=== PATIENT | male | born 1960 | race Two or more races ===

== ENCOUNTER 2024-07-03 10:58 | Outpatient (AMB) | payer MEDICAID, SELFPAY ==
[2024-07-03 11:44] VITALS: BP 152/90; PULSE 95; RESP 18; TEMP 37.2; O2SAT 93; BMI 41.7
--- NOTE | 2024-07-03 11:44 | ORTHONT_ITS ---
Vital signs 07/03/24 11:44 Height 1.6 m Height Method Stated Weight 106.793 kg Weight Measurement Method Standing Scale BMI 41.7 BP 152/90 H Blood Pressure Source Automatic Cuff Blood Pressure Location Left Upper Arm Position Sitting Respiration 18 Pulse 95 Pulse Source Monitor Temp 98.9 F Temp Source Temporal Artery Scan Pulse Oximetry (%) 93 L Oxygen Delivery Method Room Air Med/Allergies Allergies & Medications Allergies No Known Allergies Allergy (Verified 07/03/24 11:45) Medication Reconciliation acetaminophen 500 mg tablet 500 mg PO Q6H PRN Pain 12/22/23 [History Confirmed 0 07/03/24] lisinopril 20 mg tablet (Zestril) 20 mg PO QDAY 12/22/23 [History Confirmed 07/03/24] sitagliptin phosphate 50 mg-metformin 1,000 mg tablet (Janumet) 1 tab BID 12/22/23 [History Confirmed 07/03/24] blood sugar diagnostic (Blood Glucose Test strips) #50 ea 12/26/23 [Rx Confirmed 07/03/24] blood-glucose meter (Blood Glucose Monitoring kit) #1 ea 12/26/23 [Rx Confirmed 07/03/24] lancets 33 gauge (E-Z Ject Lancets) #100 ea 12/26/23 [Rx Confirmed 07/03/24] sitagliptin phosphate 50 mg-metformin 1,000 mg tablet (Janumet) 1 tab PO BID 07/03/24 [History Confirmed 07/03/24] Exam Exam Breathing is nonlabored. Patient has a normal mood and affect. Bilateral extremities were evaluated and demonstrates sensation intact to light touch. Palpable pedal pulses are present. No significant edema is present. Bilateral hips were examined. The patient has no pain with log roll of the hips. Internal rotation to 30 degrees and external rotation to 30 degrees is painless. Negative FADIR. Left knee was examined today. The left knee is in reasonable alignment. Range of motion from 0-120 degrees. Knee is stable to varus and valgus as well as AP translation with <5mm. Patient has a negative McMurrays. There is no pain with patellofemoral compression and no crepitus noted. The knee is nontender to palpation. The right knee was also examined. The right knee is in varus alignment. Range of motion from 0-115 degrees. Knee is stable to varus and valgus as well as AP translation with <5mm. Patient has a negative McMurrays. There is no pain with patellofemoral compression and no crepitus noted. The knee is tender to palpation medially. Assessment and Plan Problem List (1) Degenerative arthritis of knee, bilateral: Status: Acute Plan: Patient is a pleasant 64-year-old Male with bilateral knee pain and bilateral knee arthritis. We discussed nonoperative and operative options. He would need to be optimized medically and I will to see what his hemoglobin A1c is. We dis cussed different treatment options being on what that shows and what x-rays show. Office Procedures GNS Level of Care Nursing/Assessment Patient Status: Initial/New Patient Nursing Assessment/Reassesment: Medication Reconciliation, Update PMH in EMR and Vital Signs Coordination of Care: Complex Care and Chronic Disease 1-5, Education Complex Pt/Fam, Consent,records obtained, informed consent, 1 Ins Authorization, Lab and Imaging orders, Results/Orders obtained and Staff clarify orders Special Needs: Language special needs New Patient Charge New Patient Point Assignment: 1124 New Patient Point Charge: GENERATION ENGINEERING TECHNOLOGIST Level 4 ([id number]) MA Intake Visit Data Collection New Patient or Established: New Patient (never been to [facility]) Reason for Visit:: OSTEOARTHRITIS LEFT KNEE Seen by Clinical Staff ONLY (RN/MA): No Clerical Aide Required: Yes PCP or OBGYN visit in last 3 months: Yes Hx Now: No Do You Feel Safe at Home: Yes Authorities Contacted: N/A Questionairres Past Medical History Past Medical History Have you ever been diagnosed with any of the following: Cardiology Problems Congestive Heart Failure: No Hypertension: Yes Respiratory Problems Chronic Obstructive Pulmonary Disease (COPD): No Smoking: No Smoking Cessation Counseling: No Smoking Exposure: No Genital/Urinary Problems Renal Disease: No Musculoskeletal Problems Arthritis: Yes Endocrine Problems Diabetes Mellitus Type 1: No Diabetes Mellitus Type 2: Yes Subjective Visit Visit for: new patient and knee (LEFT) Immunization / Flu Flu Vaccine in the Last 12 Months: No Flu Vaccine Exclusion Criteria: Already Received History of Present Illness Chief complaint: left knee pain Patient is a 64-year-old male with bilateral knee pain worse on the left. He has had injections before with the last one in September and it did help. He has uncontrolled diabetes and we are unsure what his A1c is. The left knee is affecting his quality life and he is using a cane Pain Pain level (0-10): 6 Pain duration: WITH MOVEMENT Pain location: inside (medial) and anterior Pain quality: dull and aching Pain timing: increases with activity and stairs Associated signs & symptoms: none Ambulatory data Ambulatory device: none Treatments Improvement with previous injections: No Improvement with PT: No Improvement with NSAIDS: no Review of Systems Review of Systems: All systems negative unless otherwise noted in HPI.
--- NOTE | 2024-07-03 11:50 | XR_ITS ---
Examination: Bilateral knees 2 views Right lateral knee left lateral knee 2 views Right axial knee left axial knee 2 views total 6 views Exam date and time: 2024 at 12 0 1:00 PM INDICATIONS: Bilateral knee pain beginning 2 years ago. FINDINGS: Severe osteopenia Severe bilateral narrowing medial lateral joint spaces Bilateral advanced narrowing and osteoarthritis patellofemoral joints No fractures IMPRESSION: Severe bilateral tricompartment osteoarthritis
== END 2024-07-03 13:02 | disposition home or self-care (01) ==
PROVIDERS: PCP Family Medicine; Referring Provider Family Medicine; Supervising Provider Orthopaedic Surgery Adult Reconstructive Orthopaedic Surgery; Visit Provider Orthopaedic Surgery Adult Reconstructive Orthopaedic Surgery
DX: M17.0 Bilateral primary osteoarthritis of knee (principal)
CPT/HCPCS: 73564; 99204; G0463

== ENCOUNTER 2024-07-20 14:58 | Outpatient (AMB) | payer MEDICAID, SELFPAY ==
[2024-07-20 15:31] VITALS: BP 144/79; PULSE 88; RESP 18; TEMP 36.9; O2SAT 95; BMI 42.7
--- NOTE | 2024-07-20 15:31 | ORTHONT_ITS ---
Vital signs 07/20/24 15:31 Height 1.6 m Height Method Stated Weight 109.514 kg Weight Measurement Method Standing Scale BMI 42.7 BP 144/79 H Blood Pressure Source Automatic Cuff Blood Pressure Location Right Upper Arm Position Sitting Respiration 18 Pulse 88 Pulse Source Monitor Temp 98.5 F Temp Source Temporal Artery Scan Pulse Oximetry (%) 95 Oxygen Delivery Method Room Air Med/Allergies Allergies & Medications Allergies No Known Allergies Allergy (Verified 07/20/24 15:34) Medication Reconciliation acetaminophen 500 mg tablet 500 mg PO Q6H PRN Pain 12/22/23 [History Confirmed 07/20/24] lisinopril 20 mg tablet (Zestril) 20 mg PO QDAY 12/22/23 [History Confirmed 07/20/24] sitagliptin phosphate 50 mg-metformin 1,000 mg tablet (Janumet) 1 tab BID 12/22/23 [History Confirmed 07/20/24] blood sugar diagnostic (Blood Glucose Test strips) #50 ea 12/26/23 [Rx Confirmed 07/20/24] blood-glucose meter (Blood Glucose Monitoring kit) #1 ea 12/26/23 [Rx Confirmed 07/20/24] lancets 33 gauge (E-Z Ject Lancets) #100 ea 12/26/23 [Rx Confirmed 07/20/24] sitagliptin phosphate 50 mg-metformin 1,000 mg tablet (Janumet) 1 tab PO BID 07/03/24 [History Confirmed 07/20/24] Exam Exam Breathing is nonlabored. Patient has a normal mood and affect. Bilateral extremities were evaluated and demonstrates sensation intact to light touch. Palpable pedal pulses are present. No significant edema is present. Bilateral hips were examined. The patient has no pain with log roll of the hips. Internal rotation to 30 degrees and external rotation to 30 degrees is painless. Negative FADIR. Left knee was examined today. The left knee is in reasonable alignment. Range of motion from 0-120 degrees. Knee is stable to varus and valgus as well as AP translation with <5mm. Patient has a negative McMurrays. There is no pain with patellofemoral compression and no crepitus noted. The knee is nontender to palpation. The right knee was also examined. The right knee is in varus alignment. Range of motion from 0-115 degrees. Knee is stable to varus and valgus as well as AP translation with <5mm. Patient has a negative McMurrays. There is no pain with patellofemoral compression and no crepitus noted. The knee is tender to palpation medially. Bilateral knees demonstrate significant obliteration of the medial and lateral joint space bilaterally. Assessment and Plan Problem List (1) Degenerative arthritis of knee, bilateral: Status: Acute Plan: Patient is a 64-year-old male who is tried over 5 injections in the left knee. He has left greater than right knee pain and the pain is affecting his quality life and happiness. His hemoglobin A1c is currently 7.4. He reports he is as optimized as he can be. We thus will proceed with a left total knee replacement. The nature and purpose of the total knee replacement, alternative method(s) of treatment, the material risks involved, and the possibility of complications were fully explained to the patient. The patient does NOT have any of the following contraindications to TKA: - Active infection of the knee joint, OR - Active systemic bacteremia, OR - Active skin infection or open wound at surgical site, OR - Neuropathic arthritis, OR - Severe, rapidly progressive neurological disease, OR - Severe medical condition that makes risks of surgery outweigh the potential benefit The patient was told the most common risks and complications associated with a total knee replacement include, but are not limited to: blood clots in the leg, fatal pulmonary embolism, dislocation of the prosthesis, intraoperative and postoperative fractures of the femur or tibia, infection, failure of the prosthesis or grafting materials, complications from anesthesia, reactions to blood transfusions, postoperative leg length inequality, instability of the knee replacement, nerve damage or injury, vascular injury, delayed wound healing, infection, other injury or even . In addition, there are risks associated with anesthesia given during this operation. Also, the patient was told that after undergoing a total knee replacement there may still be persistent pain or disability. The patient was informed that the success of this operation in part depends upon the mechanical devices which are going to be implanted and that these devices can fail or malfunction, and may need to be repaired or replaced and there are no guarantees as to the longevity of this device or its parts and that it or its parts could fail prematurely. The patient was also notified that during the course of surgery, there may be a need to use bone graft from donors, and that any bone graft used will be carefully screened for communicable diseases, including AIDS, hepatitis, Roberto-Creutzfeldt, or other diseases, but despite the screening procedures, there is a small chance that they could contract one of these diseases. Finally, the patient was asked to follow completely and fully with all advice and recommended treatments, and that recovery and ultimate outcome are affected by their compliance with recommended treatment. We discussed the risks, benefits and treatment alternatives, and the patient is interested in proceeding with surgery. We will try to set this up as expeditiously as possible. CT previous Office Procedures GNS Level of Care Nursing/Assessment Patient Status: Established Patient Nursing Assessment/Reassesment: Medication Reconciliation, Update PMH in EMR and Vital Signs Coordination of Care: Complex Care and Chronic Disease 1-5, Education Complex Pt/Fam, Consent,records obtained, informed consent, Results/Orders obtained and Staff clarify orders Special Needs: Language special needs Established Patient Charge Established Patient Point Assignment: 95 Established Patient Point Charge: EP Level 3 (80-115) MA Intake Visit Data Collection New Patient or Established: Established Patient (seen at [facility] within 3 years) Reason for Visit:: F/U XRAYS Seen by Clinical Staff ONLY (RN/MA): No Verbal consent obtained for Telemed visit?: No Separations Scientist Required: Yes PCP or OBGYN visit in last 3 months: Yes Hx Now: No Do You Feel Safe at Home: Yes Authorities Contacted: N/A Questionairres Past Medical History Past Medical History Have you ever been diagnosed with any of the following: Cardiology Problems Congestive Heart Failure: No Hypertension: Yes Respiratory Problems Chronic Obstructive Pulmonary Disease (COPD): No Smoking: No Smoking Cessation Counseling: No Smoking Exposure: No Genital/Urinary Problems Renal Disease: No Musculoskeletal Problems Arthritis: Yes Endocrine Problems Diabetes Mellitus Type 1: No Diabetes Mellitus Type 2: Yes Subjective Visit Visit for: new patient and knee (LEFT) Immunization / Flu Flu Vaccine in the Last 12 Months: No Flu Vaccine Exclusion Criteria: Already Received History of Present Illness Chief complaint: left knee pain Patient is a 64-year-old male with bilateral knee pain worse on the left. He has had injections before with the last one in September and it did help. His hemoglobin A1c is 7.4 and is well-controlled. Pain Pain level (0-10): 6 Pain duration: WITH MOVEMENT Pain location: inside (medial) and anterior Pain quality: dull and aching Pain timing: increases with activity and stairs Associated signs & symptoms: none Ambulatory data Ambulatory device: none Treatments Improvement with previous injections: No Improvement with PT: No Improvement with NSAIDS: no Review of Systems Review of Systems: All systems negative unless otherwise noted in HPI.
== END 2024-07-20 15:50 | disposition home or self-care (01) ==
PROVIDERS: PCP Family Medicine; Referring Provider Family Medicine; Supervising Provider Orthopaedic Surgery Adult Reconstructive Orthopaedic Surgery; Visit Provider Orthopaedic Surgery Adult Reconstructive Orthopaedic Surgery
DX: M17.0 Bilateral primary osteoarthritis of knee (principal); I10 Essential (primary) hypertension
CPT/HCPCS: 99213; G0463

== ENCOUNTER 2024-08-16 09:14 | Outpatient (AMB) | payer MEDICAID, SELFPAY ==
--- NOTE | 2024-08-16 09:44 | ORTHONT_ITS ---
Vital signs 08/16/24 09:45 Height 1.65 m Height Method Stated Weight 110.336 kg Weight Measurement Method Standing Scale BMI 40.4 BP 164/85 H Blood Pressure Source Automatic Cuff Blood Pressure Location Left Upper Arm Position Sitting Respiration 18 Pulse 78 Pulse Source Monitor Temp 98.4 F Temp Source Temporal Artery Scan Pulse Oximetry (%) 94 L Oxygen Delivery Method Room Air Med/Allergies Allergies & Medications Allergies No Known Allergies Allergy (Verified 08/16/24 09:47) Medication Reconciliation acetaminophen 500 mg tablet 500 mg PO Q6H PRN Pain 12/22/23 [History Confirmed 08/16/24] lisinopril 20 mg tablet (Zestril) 20 mg PO QDAY 12/22/23 [History Confirmed 08/16/24] sitagliptin phosphate 50 mg-metformin 1,000 mg tablet (Janumet) 1 tab BID 12/22/23 [History Confirmed 08/16/24] blood sugar diagnostic (Blood Glucose Test strips) #50 ea 12/26/23 [Rx Confirmed 08/16/24] blood-glucose meter (Blood Glucose Monitoring kit) #1 ea 12/26/23 [Rx Confirmed 08/16/24] lancets 33 gauge (E-Z Ject Lancets) #100 ea 12/26/23 [Rx Confirmed 08/16/24] sitagliptin phosphate 50 mg-metformin 1,000 mg tablet (Janumet) 1 tab PO BID 07/03/24 [History Confirmed 08/16/24] Exam Exam Breathing is nonlabored. Patient has a normal mood and affect. Bilateral extremities were evaluated and demonstrates sensation intact to light touch. Palpable pedal pulses are present. No significant edema is present. Bilateral hips were examined. The patient has no pain with log roll of the hips. Internal rotation to 30 degrees and external rotation to 30 degrees is painless. Negative FADIR. Left knee was examined today. The left knee is in reasonable alignment. Range of motion from 0-120 degrees. Knee is stable to varus and valgus as well as AP translation with <5mm. Patient has a negative McMurrays. There is no pain with patellofemoral compression and no crepitus noted. The knee is nontender to palpation. The right knee was also examined. The right knee is in varus alignment. Range of motion from 0-115 degrees. Knee is stable to varus and valgus as well as AP translation with <5mm. Patient has a negative McMurrays. There is no pain with patellofemoral compression and no crepitus noted. The knee is tender to palpation medially. Bilateral knees demonstrate significant obliteration of the medial and lateral joint space bilaterally. Assessment and Plan Problem List (1) Degenerative arthritis of knee, bilateral: Status: Acute Plan: Patient is a 64-year-old male who is tried over 5 injections in the left knee. He has left greater than right knee pain and the pain is affecting his quality life and happiness. His hemoglobin A1c is currently 7.4. He reports he is as optimized as he can be. We recommend continued weight loss as his BMI is 40.4. We thus will proceed with a left total knee replacement. He would like an injection of the right knee as well today Which is the contralateral knee from the knee that he would like to get done first. Recommend knee cortisone injection as patient would like to proceed with conservative treatment at this time. The risks and benefits of the procedure were reviewed with the patient and patient gave verbal consent to continue with the procedure. Procedure: performed by Dr. Anaya Using sterile technique the Right knee was thoroughly prepped with alcohol, and approximately 1 cc of Kenalog 40 mg/mL and 4 cc of 1% lidocaine was injected without resistance into the medial tibial femoral joint space. The patient tolerated the procedure. The nature and purpose of the left total knee replacement, alternative method(s) of treatment, the material risks involved, and the possibility of complications were fully explained to the patient. The patient does NOT have any of the following contraindications to TKA: - Active infection of the knee joint, OR - Active systemic bacteremia, OR - Active skin infection or open wound at surgical site, OR - Neuropathic arthritis, OR - Severe, rapidly progressive neurological disease, OR - Severe medical condition that makes risks of surgery outweigh the potential benefit The patient was told the most common risks and complications associated with a total knee replacement include, but are not limited to: blood clots in the leg, fatal pulmonary embolism, dislocation of the prosthesis, intraoperative and postoperative fractures of the femur or tibia, infection, failure of the prosthesis or grafting materials, complications from anesthesia, reactions to blood transfusions, postoperative leg length inequality, instability of the knee replacement, nerve damage or injury, vascular injury, delayed wound healing, infection, other injury or even . In addition, there are risks associated with anesthesia given during this operation. Also, the patient was told that after undergoing a total knee replacement there may still be persistent pain or disability. The patient was informed that the success of this operation in part depends upon the mechanical devices which are going to be implanted and that these devices can fail or malfunction, and may need to be repaired or replaced and there are no guarantees as to the longevity of this device or its parts and that it or its parts could fail prematurely. The patient was also notified that during the course of surgery, there may be a need to use bone graft from donors, and that any bone graft used will be carefully screened for communicable diseases, including AIDS, hepatitis, Roberto-Creutzfeldt, or other diseases, but despite the screening procedures, there is a small chance that they could contract one of these diseases. Finally, the patient was asked to follow completely and fully with all advice and recommended treatments, and that recovery and ultimate outcome are affected by their compliance with recommended treatment. We discussed the risks, benefits and treatment alternatives, and the patient is interested in proceeding with surgery. We will try to set this up as expeditiously as possible. CT previous Office Procedures GNS Level of Care Nursing/Assessment Patient Status: Established Patient Nursing Assessment/Reassesment: Medication Reconciliation, Update PMH in EMR and Vital Signs Coordination of Care: Complex Care and Chronic Disease 1-5, Consent,records obtained, informed consent, Education Simp Pt/Fam, Results/Orders obtained and Staff clarify orders Special Needs: Language special needs ([place] ) Established Patient Charge Established Patient Point Assignment: 90 Established Patient Point Charge: EP Level 3 (80-115) Surgical Proc/IM SQ injection Major Surgical Procedure: Yes (KNEE INJECTION ) Medication Given Medication Given Medication Given: Yes Documented Dose Given: 4 Route: Infiitration Medication Given Medication Given Medication Given: Yes Documented Dose Given: 1 Route: Infiitration Office Meds Xylocaine 10 mg/mL (1 %) injection solution Performing Provider: Anthony Anaya MD Performing Location: [facility] Administered by: Anthony Anaya MD on 08/16/24 10:49 Dose Route Admin Location Dispensed Lot Number Expiration Date [facility] Clinical Coder 20 mL Infiltration 20 mL [id number] 10/01/27 44839-388-22 [facility] triamcinolone acetonide 40 mg/mL suspension for injection Performing Provider: Anthony Anaya MD Performing Location: [facility] Administered by: Anthony Anaya MD on 08/16/24 10:49 Dose Route Admin Location Dispensed Lot Number Expiration Date [facility] Clinical Coder 40 mg intra-articular KNEE 1 mL [id number] 01/30/26 7384-2815-79 [employer] [place] [facility] MA Intake Visit Data Collection New Patient or Established: Established Patient (seen at [facility] within 3 years) Reason for Visit:: FU LT KNEE PAIN Seen by Clinical Staff ONLY (RN/MA): No Windows Desktop Engineer Required: Yes PCP or OBGYN visit in last 3 months: Yes Hx Now: No Do You Feel Safe at Home: Yes Authorities Contacted: N/A Questionairres Past Medical History Past Medical History Have you ever been diagnosed with any of the following: Cardiology Problems Congestive Heart Failure: No Hypertension: Yes Respiratory Problems Chronic Obstructive Pulmonary Disease (COPD): No Smoking: No Smoking Cessation Counseling: No Smoking Exposure: No Genital/Urinary Problems Renal Disease: No Musculoskeletal Problems Arthritis: Yes Endocrine Problems Diabetes Mellitus Type 1: No Diabetes Mellitus Type 2: Yes Subjective Visit Visit for: follow up visit and knee (LEFT KNEE ) Immunization / Flu Flu Vaccine in the Last 12 Months: No Flu Vaccine Exclusion Criteria: Refused by Patient History of Present Illness Chief complaint: left knee pain Patient is a 64-year-old male with bilateral knee pain worse on the left. He has had injections before with the last one in September and it did help. His hemoglobin A1c is 7.4 and is well-controlled. We recommend continued weight loss as his BMI is high and insurance denied his prior surgery. We remeasured his height and his BMI is 40.4 Personal History Red flag PMH: none Pain Pain level (0-10): 10 Pain duration: 7 MONTHS Pain location: anterior Pain quality: sharp, burning and tingling Pain timing: night and increases with activity Associated signs & symptoms: numbness Ambulatory data Ambulatory device: walker Walking distance (minutes): 5 Treatments Number of previous injections: 2 Improvement with previous injections: No Number of Physical Therapy sessions: 0 Improvement with PT: No Improvement with NSAIDS: n/a Review of Systems Review of Systems: All systems negative unless otherwise noted in HPI.
[2024-08-16 09:45] VITALS: BP 164/85; PULSE 78; RESP 18; TEMP 36.9; O2SAT 94; BMI 40.4
== END 2024-08-16 10:10 | disposition home or self-care (01) ==
PROVIDERS: PCP Family Medicine; Referring Provider Family Medicine; Supervising Provider Orthopaedic Surgery Adult Reconstructive Orthopaedic Surgery; Visit Provider Orthopaedic Surgery Adult Reconstructive Orthopaedic Surgery
DX: M17.0 Bilateral primary osteoarthritis of knee (principal); M25.561 Pain in right knee; I10 Essential (primary) hypertension
CPT/HCPCS: 20610; 99213; J3301; J3490; G0463